=== PATIENT | female | born 1955 | race Caucasian/White ===

== ENCOUNTER → 2016-11-10 | Outpatient (CLI) | payer BC ==
[~2016-11-10] MED LIST: IOPAMIDOL (ISOVUE-300) 100 ML BTL IV ONE
== END ==
LOC: CIMAGING 09:27
PROVIDERS: ATTEND Family Medicine Sports Medicine
DX: R07.81 Pleurodynia (principal)
CPT/HCPCS: 71260-PO; Q9967

== ENCOUNTER → 2016-12-20 | Outpatient (CLI) | payer BC | LOC: CIMAGING 09:11 | DX: Z12.31 Encounter for screening mammogram for malignant neoplasm of breast (principal) | CPT/HCPCS: G0202 ==